=== PATIENT | male | born 1950 | race Caucasian/White ===

== ENCOUNTER 2022-05-14 17:42 | Observation (INO) ==
[2022-05-14 18:25] LABS: Basophils # (auto) 0.06 K/uL (0-0.2); Basophils % (auto) 0.3 %; Eosinophils # (auto) 0.08 K/uL (0-0.50); Eosinophils % (auto) 0.4 %; Hematocrit (blood only) 47.6 % (40.1-51.0); Hemoglobin 16.1 g/dl (14.0-18.0); Immature Granulocytes % (auto) 0.5 %; Lymphocytes # (auto) 3.88 K/uL (1.2-3.4); Lymphocytes % (auto) 20.7 %; Mean Corpuscular Hemoglobin 28.9 pg (25.0-34.0); Mean Corpuscular Hgb Conc 33.8 g/dL (32.0-36.0); Mean Corpuscular Volume 85.3 fL (80.0-100.0); Mean Platelet Volume 10.5 fL (9.4-12.4); Monocytes # (auto) 1.49 K/uL (0.24-0.82); Monocytes % (auto) 7.9 %; Neutrophils # (auto) 13.15 K/uL (1.4-6.5); Neutrophils % (auto) 70.2 %; Platelet Count 263 K/uL (130-400); RDW Coefficient of Variation 13.4 % (11.5-14.5); Red Blood Count 5.58 M/uL (4.63-6.08); White Blood Count 18.76 K/ul (4.8-10.8)
[2022-05-14 18:42] LABS: Alanine Aminotransferase 23 U/L (7-52); Alkaline Phosphatase 118 U/L (34-104); Anion Gap 7 (3-11); Aspartate Aminotransferase 16 U/L (13-39); BUN Creatinine Ratio 15.6 (10-20); Blood Urea Nitrogen 12 mg/dl (6-23); Calcium 9.5 mg/dl (8.5-10.1); Carbon Dioxide 25 mmol/L (21-32); Chloride 98 mmol/L (98-107); Est GFR (African American) 107.3 ml/min; Est GFR (Non-African American) 92.6 ml/min; Globulin 4.1 gm/dl (2.5-4.0); Glucose 138 mg/dl (70-99(Fasting)); Lipase 4 U/L (11-82); Potassium 4.1 mmol/L (3.5-5.1); Sodium 130 mmol/L (136-145); Total Protein 8.1 gm/dl (6.0-8.3)
[2022-05-14] MEDS ORDERED: MoRPHine SULFATE 4 MG/ML 1 ML CARP\\VIAL IV STA (19:11)
[2022-05-14] MEDS ORDERED: ACETAMINOPHEN 1,000 MG/100 ML VIAL IV STA (19:11)
[2022-05-14] MEDS ORDERED: ONDANSETRON INJ 2 MG/ML 2 ML VIAL IV STA (19:11)
[2022-05-14] MEDS ORDERED: SODIUM CHLORIDE 0.9% 1000ML 1,000 ML IV ONE (19:11)
[2022-05-14] MEDS ORDERED: OPTIRAY 300 100mL IV ONE (19:20)
--- NOTE | 2022-05-14 20:08 | Emergency Department Note ---
Impression & Plan Acute appendicitis, Acute right lower quadrant pain, Nausea ED Provider Note NAME: ELÍAS WAGGONER Jr AGE: 71 SEX: M ARRIVES VIA: Walk-In INFORMANT: Patient ED PROVIDER(S): Smith Zhang MD CHIEF COMPLAINT: Abdominal pain PLAN: Disposition: Admit MEDICAL DECISION MAKING: The patient is a pleasant 71-year-old gentleman with a past medical history of hypertension, hyperlipidemia, hypothyroidism, history of remote splenectomy who presents to the emergency department accompanied by his for evaluation of acute onset nausea with right-sided abdominal pain and decreased appetite since this morning. He denies any fevers, cough, congestion, chest pain or shortness of breath. He denies any urinary symptoms. On arrival the patient is uncomfortable no acute distress, afebrile with stable vital signs. He appears clinically dry. He has moderate right lower quadrant point tenderness over McBurney's point. There is no guarding or rebound. WBC 18.7K with neutrophil predominance and left shift. H/H and platelets within normal limits. Chemistry without metabolic acidosis. Electrolytes and LFTs unremarkable. COVID-19 RNA, SUSHMA test was negative. CT of the abdomen pelvis was performed and demonstrates evidence of acute appendicitis with dilated tubular blind-ending structure in the right lower quadrant compatible with inflamed appendix measuring 1.4 cm transversely with thickened fierro and mucosal hyperemia and intraluminal hyperdense material. Note is made of trace periappendiceal inflammation. Ceftriaxone ordered. Case was discussed with Chino Wiggins, general surgery PAC with Dr. Monaco, general surgery on-call who admit the patient for further management. Triage Nursing notes reviewed and agree them. Prior medical records reviewed Vital Signs: reviewed and remarkable for no significant abnormalities Differential diagnosis: Appendicitis, testicular torsion, infections, diverticulitis, UTI, obstruction, mesenteric ischemia, aortic pathology, inflammatory bowel disease, renal colic, PUD, pancreatitis, biliary pathology, hernia, volvulus, constipation, as well as other pathologies. ER treatment provided: See below. Diagnostics interpreted by me: ECG: Normal sinus rhythm, 78 bpm, no ectopy, no overt ST ovation or depression, QTC 446, QRS 82. Cardiac Monitoring: An order for continuous cardiac monitoring was placed and demonstrated Normal sinus rhythm, 78 bpm, no ectopy. Laboratory studies: See below Imaging studies: See below Consultation(s): Chino Wiggins general surgery PAC with Dr. Monaco, general surgery on-call HPI: The patient is a pleasant 71-year-old gentleman with a past medical history of hypertension, hyperlipidemia, hypothyroidism, history of remote splenectomy who presents to the emergency department accompanied by his for evaluation of acute onset nausea with right-sided abdominal pain and decreased appetite since this morning. He denies any fevers, cough, congestion, chest pain or shortness of breath. He denies any urinary symptoms. ROS: See above HPI for pertinent positives & negatives. A total of 10 systems reviewed and were otherwise negative. VITALS:See Below PHYSICAL EXAMINATION: GENERAL: Awake, alert, uncomfortable-appearing, in no distress HENT: Normocephalic, atraumatic. Oropharynx with dry mucous membranes and otherwise unremarkable. EYES: Normal conjunctiva. Sclera non-icteric. NECK: Supple. No nuchal rigidity. FROM. No JVD. RESPIRATORY: Clear to auscultation. CARDIAC: Regular rate, normal rhythm. Extremities warm and well perfused. Pulses equal. ABDOMEN: Soft, non-distended. Moderate right lower quadrant point tenderness over McBurney's point. There is no guarding or rebound. RECTAL: Deferred. MUSCULOSKELETAL: Chest examination reveals no tenderness. The back is symmetrical on inspection without obvious abnormality. There is no CVA tenderness to palpation. No joint edema. LOWER EXTREMITIES: Calves are equal size bilaterally and non-tender. No edema. No discoloration. NEURO: Normal sensorium. No sensory or motor deficits noted. SKIN: No rash or jaundice noted. Smith Zhang MD Past Med/Surg History Medical History BPH (benign prostatic hyperplasia) Hyperlipidemia Hypertension Hyponatremia Hypothyroidism Osteoarthritis Palpitations JUST ON OCCASION > DR. CADE > JULIAN DUVAL Surgical History History of cardiac cath NOVEMBER 2018 > JUST PREVENTATIVE PURPOSES > NO STENTS > PATITO DALY History of carpal tunnel release RIGHT History of colonoscopy History of splenectomy YRS AGO History of tonsillectomy Family History Father Throat cancer Social History Smoking Status: Former smoker Second Hand Exposure: Yes; Hx Alcohol Use: Yes Alcohol type: beer Hx Substance Use: No Preferred Language: Greek Communication Ability: Effective Turkish Line Attendant Required: No Beliefs That Will Affect Care: None Current Living Situation: Spouse Feels Safe at Home: Yes Assistive Devices: Glasses Allergies Allergies Allergy/AdvReac Type Severity Reaction Status Date / Time Penicillins Allergy Unknown Rash Verified 05/14/22 21:08 Home Meds Home Medications Medication Instructions Recorded Confirmed coenzyme Q10 100 mg capsule (Co 100 mg PO 1200 09/08/19 05/14/22 Q-10) folic acid 400 mcg tablet 400 mcg PO 1200 09/08/19 05/14/22 levothyroxine 175 mcg tablet 175 mcg PO DAILYBB 09/08/19 05/14/22 (Synthroid) aspirin 81 mg tablet,delayed 81 mg PO DAILY 05/14/22 05/14/22 release atorvastatin 40 mg tablet 40 mg PO DAILY 05/14/22 05/14/22 meloxicam 15 mg tablet 15 mg PO .DAILY AT NOON 05/14/22 05/14/22 terbinafine HCl 250 mg tablet 250 mg PO DAILY 05/14/22 05/14/22 valsartan 40 mg tablet 40 mg PO HS 05/14/22 05/14/22 verapamil 120 mg tablet,extended 120 mg PO QAM 05/14/22 05/14/22 release Results & Data (ED) Vital Signs Vital Signs - 24 hr 05/14/22 17:50 05/14/22 19:41 05/14/22 21:58 Temperature 37.4 C Temperature Source Temporal Artery Scan Pulse Rate 68 77 Pulse Rate [Apical] 84 Pulse Rhythm [Apical] Regular Respiratory Rate 18 16 16 Blood Pressure 178/91 H 138/85 Blood Pressure [Right Arm] Blood Pressure Mean 120 Blood Pressure Mean [Right Arm] Blood Pressure Position Sitting Pulse Oximetry 97 96 95 Oxygen Delivery Method Room Air Room Air Room Air Oxygen Flow Rate Sepsis Recent Fever Within 48 Hours No Sepsis New/Unexplained Change in Mental Status No Sepsis Action Taken by Nursing No Action Required 05/14/22 23:15 05/14/22 23:25 05/14/22 23:35 Temperature 37.2 C 37.2 C 37.2 C Temperature Source Oral Oral Oral Pulse Rate Pulse Rate [Apical] 78 79 71 Pulse Rhythm [Apical] Respiratory Rate 18 18 18 Blood Pressure Blood Pressure [Right Arm] 136/66 137/77 149/79 H Blood Pressure Mean Blood Pressure Mean [Right Arm] 89 97 102 Blood Pressure Position Pulse Oximetry 100 94 93 Oxygen Delivery Method Nasal Cannula Nasal Cannula Room Air Oxygen Flow Rate 5 3 Sepsis Recent Fever Within 48 Hours Sepsis New/Unexplained Change in Mental Status Sepsis Action Taken by Nursing 05/14/22 23:45 Temperature 37.2 C Temperature Source Oral Pulse Rate Pulse Rate [Apical] 82 Pulse Rhythm [Apical] Respiratory Rate 18 Blood Pressure Blood Pressure [Right Arm] 130/74 Blood Pressure Mean Blood Pressure Mean [Right Arm] 92 Blood Pressure Position Pulse Oximetry 92 Oxygen Delivery Method Room Air Oxygen Flow Rate Sepsis Recent Fever Within 48 Hours Sepsis New/Unexplained Change in Mental Status Sepsis Action Taken by Nursing Laboratory Data Attestation: I reviewed the patient's lab results. Result diagrams: 05/14/22 18:10 05/14/22 18:10 Lab Results 05/14/22 05/14/22 05/14/22 Range/Units 18:10 18:10 19:37 WBC 18.76 H (4.8-10.8) K/ul RBC 5.58 (4.63-6.08) M/uL Hgb 16.1 (14.0-18.0) g/dl Hct 47.6 (40.1-51.0) % MCV 85.3 (80.0-100.0) fL MCH 28.9 (25.0-34.0) pg MCHC 33.8 (32.0-36.0) g/dL RDW Std Deviation 42.0 (36.4-46.3) fL RDW Coeff of Zoraida 13.4 (11.5-14.5) % Plt Count 263 (130-400) K/uL MPV 10.5 (9.4-12.4) fL Immature Gran % (Auto) 0.5 % Neut % (Auto) 70.2 % Lymph % (Auto) 20.7 % [place] % (Auto) 7.9 % Eos % (Auto) 0.4 % Baso % (Auto) 0.3 % Neut # (Auto) 13.15 H (1.4-6.5) K/uL Lymph # (Auto) 3.88 H (1.2-3.4) K/uL [place] # (Auto) 1.49 H (0.24-0.82) K/uL Eos # (Auto) 0.08 (0-0.50) K/uL Baso # (Auto) 0.06 (0-0.2) K/uL Immature Gran # (Auto) 0.10 H (0.00-0.02) K/uL Sodium 130 L (136-145) mmol/L Potassium 4.1 (3.5-5.1) mmol/L Chloride 98 (98-107) mmol/L Carbon Dioxide 25 (21-32) mmol/L Anion Gap 7 (3-11) BUN 12 (6-23) mg/dl Creatinine 0.77 (0.6-1.4) mg/dl Est Cr Clr Drug Dosing Not Reportable Est GFR ( Amer) 107.3 ml/min Est GFR (Non-Af Amer) 92.6 ml/min BUN/Creatinine Ratio 15.6 (10-20) Glucose 138 H (70-99(Fasting)) mg/dl Calcium 9.5 (8.5-10.1) mg/dl Total Bilirubin 1.0 (0.2-1.0) mg/dl AST 16 (13-39) U/L ALT 23 (7-52) U/L Alkaline Phosphatase 118 H (34-104) U/L Total Protein 8.1 (6.0-8.3) gm/dl Albumin 4.0 (3.4-5.0) gm/dl Globulin 4.1 H (2.5-4.0) gm/dl Albumin/Globulin Ratio 1.0 (0.9-2) Lipase 4 L (11-82) U/L SARS-CoV-2, RNA, NAAT NEGATIVE (NEGATIVE) Administered Medications Sodium Chloride (Nss 1000ml) 1,000 mls @ 125 mls/hr IV .Q8H [facility] Stop: 06/13/22 20:44 Last Admin: 05/14/22 21:01 Dose: 125 mls/hr Documented By: KV Discontinued Medications Bupivacaine HCl (Bupivacaine 0.5 % 5 Mg/1 Ml Mpf 30ml Vial) Confirm Administered Dose 30 ml .ROUTE .STK-MED ONE Stop: 05/14/22 21:14 Last Admin: 05/14/22 22:59 Dose: 12 ml Documented By: MDD Epinephrine HCl (Epinephrine Inj 1 Mg/Ml Amp) Confirm Administered Dose 1 mg .ROUTE .STK-MED ONE Stop: 05/14/22 21:14 Last Admin: 05/14/22 22:59 Dose: 1 mg Documented By: MDD Sodium Chloride (Nss 1000ml) 1,000 mls @ 999 mls/hr IV .Q1H1M ONE Stop: 05/14/22 20:11 Last Admin: 05/14/22 19:33 Dose: 999 mls/hr Documented By: KV Acetaminophen (Ofirmev) 1,000 mg in 100 mls @ 400 mls/hr IV NOW STA Stop: 05/14/22 19:25 Last Admin: 05/14/22 19:34 Dose: 400 mls/hr Documented By: KV Ceftriaxone Sodium (Rocephin) 2,000 mg in 70 mls @ 140 mls/hr IV NOW STA Stop: 05/14/22 20:48 Last Admin: 05/14/22 21:01 Dose: 140 mls/hr Documented By: KV Ioversol (Optiray 300 100ml) 88 ml IV ONCE ONE Stop: 05/14/22 19:21 Last Admin: 05/14/22 19:22 Dose: 88 ml Documented By: JMP Morphine Sulfate (Morphine Sulfate 4 Mg/Ml 1 Ml Carp\Vial) 4 mg IV NOW STA Stop: 05/14/22 19:12 Last Admin: 05/14/22 19:34 Dose: 4 mg Documented By: KV Ondansetron HCl (Ondansetron Inj 2 Mg/Ml 2 Ml Vial) 4 mg IV NOW STA Stop: 05/14/22 19:12 Last Admin: 05/14/22 19:34 Dose: 4 mg Documented By: KV Imaging Data Radiologist's Impression: Abdomen/Pelvis CT 05/14/22 17:[address] WITH IV CONTRAST CT DOSE: 1244.52 mGy.cm HISTORY: Acute right lower quadrant abdominal pain RLQ abd pain TECHNIQUE: Multiaxial CT images of the abdomen and pelvis were performed following the IV administration of 88 cc of Optiray, A dose lowering technique was utilized adhering to the principles of ALARA. COMPARISON STUDY: None. FINDINGS: Coronary artery calcifications. Mild cardiomegaly. Mild subsegmental bibasilar atelectasis. No pneumatosis or pneumoperitoneum. Absent spleen. Unremarkable pancreas, gallbladder and adrenal glands. Hepatomegaly with hepatic steatosis. Increased attenuation of the inferior right hepatic lobe measuring up to approximately 8.6 cm with marginal nodularity may represent fatty sparing. An exophytic hepatic lesion is considered less likely. Patency of the hepatic and portal veins. Symmetric enhancement of the kidneys. 3.4 cm cyst within the inferior pole left kidney. There are 2 calcifications in the inferior pole right kidney measuring up to 4 mm suggestive of nonobstructing renal calculi. No ureteral calculi or hydronephrosis. Partial distention of the urinary bladder. The prostate is upper limits of normal in size. Atherosclerosis of the aorta without aneurysm. No lymphadenopathy. No bowel obstruction. Mild fecal retention of the right hemicolon. There is a dilated tubular blind-ending structure within the abdominal right lower quadrant compatible with an inflamed appendix measuring 1.4 cm transversely demonstrating thickened fierro with mucosal hyperemia and intraluminal hyperdense material. Periappendiceal inflammation with trace free fluid no drainable fluid collection. Wall thickening at the base of the cecum is likely reactive. Unremarkable soft tissues. No acute fracture. Avascular necrosis of the femoral heads without articular collapse. IMPRESSION: 1. Findings compatible with acute appendicitis with intraluminal hyperdense debris suggestive of probable appendicolith. 2. No pneumoperitoneum or abscess. 3. No bowel obstruction. 4. Hepatomegaly with hepatic steatosis. 5. Avascular necrosis of the femoral heads. 6. Nonobstructing right renal calculi. ACT 112: Negative or not required by law. The above report was generated using voice recognition software. It may contain grammatical, syntax or spelling errors. Electronically signed by: Glynn Lewis M.D. 05/14/2022 8:14 PM Discharge Plan Visit Data Chief Complaint: Abdominal Pain Stated Complaint: REF BY , ABDOMINAL PAIN ED Provider: Smith Zhang Discharge Problem: Acute appendicitis, Acute right lower quadrant pain, Nausea Patient Disposition: Admitted As Inpatient Discharge Instructions Interventions: ED Discharge Assessment Last Done: 05/14/22 21:58
--- NOTE | 2022-05-14 20:16 | CT Scan Report ---
ABDOMEN AND PELVIS CT WITH IV CONTRAST CT DOSE: 1244.52 mGy.cm HISTORY: Acute right lower quadrant abdominal pain RLQ abd pain TECHNIQUE: Multiaxial CT images of the abdomen and pelvis were performed following the IV administrat ion of 88 cc of Optiray, A dose lowering technique was utilized adhering to the principles of ALARA. COMPARISON STUDY: None. FINDINGS: Coronary artery calcifications. Mild cardiomegaly. Mild subsegmental bibasilar atelectasis. No pneuma tosis or pneumoperitoneum. Absent spleen. Unremarkable pancreas, gallbladder and adrenal glands. Hepa tomegaly with hepatic steatosis. Increased attenuation of the inferior right hepatic lobe measuring u p to approximately 8.6 cm with marginal nodularity may represent fatty sparing. An exophytic hepatic lesion is considered less likely. Patency of the hepatic and portal veins. Symmetric enhancement of the kidneys. 3.4 cm cyst within the inferior pole left kidney. There are 2 c alcifications in the inferior pole right kidney measuring up to 4 mm suggestive of nonobstructing omid al calculi. No ureteral calculi or hydronephrosis. Partial distention of the urinary bladder. The pro state is upper limits of normal in size. Atherosclerosis of the aorta without aneurysm. No lymphadeno zain. No bowel obstruction. Mild fecal retention of the right hemicolon. There is a dilated tubular blind-e nding structure within the abdominal right lower quadrant compatible with an inflamed appendix measur ing 1.4 cm transversely demonstrating thickened fierro with mucosal hyperemia and intraluminal hyperde nse material. Periappendiceal inflammation with trace free fluid no drainable fluid collection. Wall thickening at the base of the cecum is likely reactive. Unremarkable soft tissues. No acute fracture. Avascular necrosis of the femoral heads without articular collapse. IMPRESSION: 1. Findings compatible with acute appendicitis with intraluminal hyperdense debris suggestive of prob able appendicolith. 2. No pneumoperitoneum or abscess. 3. No bowel obstruction. 4. Hepatomegaly with hepatic steatosis. 5. Avascular necrosis of the femoral heads. 6. Nonobstructing right renal calculi. ACT 112: Negative or not required by law. The above report was generated using voice recognition software. It may contain grammatical, syntax o r spelling errors. Electronically signed by: Glynn Lewis M.D. 05/14/2022 8:14 PM
[2022-05-14] MEDS ORDERED: cefTRIAXone SODIUM 2,000 MG/70 ML BAG IV STA (20:19)
[2022-05-14] MEDS ORDERED: SODIUM CHLORIDE 0.9% 1000ML 1,000 ML IV SCH (20:45)
--- NOTE | 2022-05-14 20:54 | History & Physical Report ---
Date of Service May 14, 2022 Assessment & Plan (1) Acute appendicitis: Plan: Due to the patient's clinical presentation he will be admitted to the hospital proceeding as follows: Patient be kept n.p.o. We will administer antibiotics. The treating emergency room physician has given Rocephin and we will continue this medication Analgesics we provided Antiemetics be provided We will hydrate with IV fluids We are planning on performing appendectomy this evening with Dr. Monaco. I have consented the patient for a laparoscopic, possible open appendectomy. Additional recommendations be forthcoming based on operative findings and his postoperative course We will use SCDs for DVT prevention, no chemical means due to planned surgery He will be a level 1 full code as above. clinically c/w appendicitis. discussed options risks ( bleeding/infe ction/injury to another structure/dvt/pe/mi/cva etc....). questions answered. will proceed with hannah tracy. pt agreeable. History of Present Illness Chief Complaint: Acute appendicitis Primary Care Provider: Ever Agrawal DO This is a 71-year-old male who presented to [facility] emergency department secondary to abdominal pain. He said that the pain began earlier this morning and was located in the periumbilical area. He notes that the pain subsequently shifted to the right lower quadrant. He has associated nausea without vomiting. Patient says that his only oral intake today was water at approximately 12:00 PM. He did not eat any solid foods today. With his pain he denies any palliative factors other than medicines administered in the emergency department. He does note that the pain is worse with certain movements. He denies any fevers, shakes, or chills. Patient has had prior abdominal surgeries in the form of a splenectomy which she had he believes in 1971 and was performed due to splenomegaly. He could not provide any further details regarding this. 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 He does admit to intermittent chest pain at times but feels that this is stable. He does follow with his transcript clerk Dr. Aren Grier and has a stress test approximately 1 month ago. The report from this was reviewed and the patient was noted to have a normal stress test without any signs of ischemia. Today in the emergency department he had labs and imaging which I independently reviewed. Labs include a CBC were white blood cell count was 18.7. Hemoglobin, hematocrit, and platelet count were normal. Chemistry profile showed a sodium is 130. Potassium, BUN, and creatinine were normal. A COVID test was performed and was negative. An EKG was performed that showed normal sinus rhythm without any changes indicative of acute ischemia.A CT scan of the abdomen and pelvis showed findings concerning for acute appendicitis with intraluminal appendiceal debris concerning for an appendicolith. There is no evidence of perforation. At the time of my interview the patient was resting comfortably in bed and he was in no distress Allergies Allergy/AdvReac Type Severity Reaction Status Date / Time Penicillins Allergy Unknown Rash Verified 05/14/22 21:08 Home Medications Medication Instructions Recorded Confirmed Type coenzyme Q10 100 mg capsule (Co 100 mg PO 1200 09/08/19 05/14/22 History Q-10) folic acid 400 mcg tablet 400 mcg PO 1200 09/08/19 05/14/22 History levothyroxine 175 mcg tablet 175 mcg PO DAILYBB 09/08/19 05/14/22 History (Synthroid) aspirin 81 mg tablet,delayed 81 mg PO DAILY 05/14/22 05/14/22 History release atorvastatin 40 mg tablet 40 mg PO DAILY 05/14/22 05/14/22 History meloxicam 15 mg tablet 15 mg PO .DAILY AT NOON 05/14/22 05/14/22 History terbinafine HCl 250 mg tablet 250 mg PO DAILY 05/14/22 05/14/22 History valsartan 40 mg tablet 40 mg PO HS 05/14/22 05/14/22 History verapamil 120 mg tablet,extended 120 mg PO QAM 05/14/22 05/14/22 History release Past Med/Surg History Medical History BPH (benign prostatic hyperplasia) Hyperlipidemia Hypertension Hyponatremia Hypothyroidism Osteoarthritis Palpitations JUST ON OCCASION > DR. GRIER > JULIAN DUVAL Surgical History History of cardiac cath NOVEMBER 2018 > JUST PREVENTATIVE PURPOSES > NO STENTS > PATITO DALY History of carpal tunnel release RIGHT History of colonoscopy History of splenectomy YRS AGO History of tonsillectomy Family History Father Throat cancer Social History Smoking Status: Former smoker Second Hand Exposure: Yes; Hx Alcohol Use: Yes Alcohol type: beer Hx Substance Use: No Preferred Language: German Communication Ability: Effective Seal Mixing Operator Required: No Beliefs That Will Affect Care: None Current Living Situation: Spouse Feels Safe at Home: Yes Assistive Devices: Glasses Review of Systems Constitutional: no fever and no chills Eyes: no eye pain Ear, Nose, Mouth, Throat: no ear pain Respiratory: no cough and no dyspnea Cardiovascular: as per Subjective / HPI Gastrointestinal: as per Subjective / HPI Genitourinary: no dysuria Musculoskeletal: no back pain Integumentary: no rash Neurologic: no generalized weakness Physical Exam Constitutional: WD/WN, vitals as above Eyes: no conjunctival abnormality ENMT: Ears: no hearing impairment and no external ear abnormality Mouth: no oropharynx abnormality Neck: trachea midline Respiratory: normal respiratory effort; no respiratory distress and no labored breathing Cardiovascular: Rate/Rhythm: regular rate and regular rhythm Gastrointestinal (Abdomen): Abdomen is rotund but soft. There is pain noted with palpation in the right lower quadrant over McBurney's point. There is no rebound tenderness or guarding Musculoskeletal: No calf tenderness Skin: no rashes Neurologic: moves all extremities Psychiatric: A+Ox3, euthymic affect Results & Data Results & Data ([facility]) Vital Signs (Past 12 Hours) Vital Signs Temp Pulse Pulse Resp BP Pulse Ox O2 Del Method 05/14/22 19:41 84 16 96 Room Air 05/14/22 17:50 37.4 C 68 18 178/91 H 97 Room Air PG Care Time/CCT Total # of Minutes Spent Total Time Spent with Patient: Total time spent is greater than 50% in coordination of care (as documented) at patient's floor/unit and/or counseling patient: Coding Level of Care Code INT OBSERVATION CARE 72M LVL 3 Diagnoses Acute appendicitis K35.80
[2022-05-14] MEDS ORDERED: EPINEPHrine INJ 1 MG/ML AMP ONE (21:13)
[2022-05-14] MEDS ORDERED: BUPIVACAINE 0.5 % 5 MG/1 ML MPF 30ML VIAL ONE (21:13)
[2022-05-14] MEDS ORDERED: ACETAMINOPHEN 1,000 MG/100 ML VIAL IV PRN (21:17)
[2022-05-14] MEDS ORDERED: MoRPHine SULFATE 4 MG/ML 1 ML CARP\\VIAL IV PRN (21:17)
[2022-05-14] MEDS ORDERED: ONDANSETRON INJ 2 MG/ML 2 ML VIAL IV PRN ×2 (21:17→21:38)
[2022-05-14] MEDS ORDERED: ePHEDrine sulfate 50 MG/ML AMP IV PRN (21:38)
[2022-05-14] MEDS ORDERED: HYDROmorphone INJ 1 MG/ML SYRINGE IV PRN (21:38)
[2022-05-14] MEDS ORDERED: LABETALOL HCL IV 5 MG/ML 20ML IV PRN (21:38)
[2022-05-14] MEDS ORDERED: MEPERIDINE HCL 25 MG/ML CARP/VIAL IV PRN (21:38)
[2022-05-14] MEDS ORDERED: ATROPINE SULFATE 0.1 MG/ML 10ML SYR IV PRN (21:38)
[2022-05-14] MEDS ORDERED: PHENYLEPHRINE 100MCG/ML 5ML SYR IV PRN (21:38)
[2022-05-14] MEDS ORDERED: fentaNYL citrate 100 MCG/2 ML VIAL IV PRN (21:38)
--- NOTE | 2022-05-14 21:39 | Anesthesiology Consultation ---
Date of Service May 14, 2022 Assessment & Plan (1) Encounter for pre-operative examination: Chart Review Chart Review: Acceptable Risk for Surgery (emergency surgery) and Patient NOT seen in Pre Admission Testing Consults Requested none History Surgery Operation Date: 05/14/22 22:00 Proposed Procedures p Laparoscopic Appendectomy - Simone Monaco DO Height/Weight Weight: 115.6 kg Allergies Allergy/AdvReac Type Severity Reaction Status Date / Time Penicillins Allergy Unknown Rash Verified 05/14/22 21:08 Medications Home Medications Medication Instructions Recorded Confirmed Last Taken coenzyme Q10 100 mg capsule (Co 100 mg PO 1200 09/08/19 05/14/22 05/14/22 Q-10) folic acid 400 mcg tablet 400 mcg PO 1200 09/08/19 05/14/22 05/14/22 levothyroxine 175 mcg tablet 175 mcg PO DAILYBB 09/08/19 05/14/22 05/14/22 (Synthroid) aspirin 81 mg tablet,delayed 81 mg PO DAILY 05/14/22 05/14/22 05/14/22 release atorvastatin 40 mg tablet 40 mg PO DAILY 05/14/22 05/14/22 05/13/22 meloxicam 15 mg tablet 15 mg PO .DAILY AT NOON 05/14/22 05/14/22 05/14/22 terbinafine HCl 250 mg tablet 250 mg PO DAILY 05/14/22 05/14/22 05/14/22 valsartan 40 mg tablet 40 mg PO HS 05/14/22 05/14/22 05/13/22 verapamil 120 mg tablet,extended 120 mg PO QAM 05/14/22 05/14/22 05/14/22 release Active Medications Generic Name Dose Route Start Last Admin Trade Name Freq PRN Reason Stop Dose Admin Sodium Chloride 1,000 mls @ 125 mls/hr 05/14/22 20:45 05/14/22 21:01 Nss 1000ml IV 06/13/22 20:44 125 mls/hr .Q8H RAJ Administration Past Medical History Medical History BPH (benign prostatic hyperplasia) Hyperlipidemia Hypertension Hyponatremia Hypothyroidism Osteoarthritis Palpitations JUST ON OCCASION > DR. CADE > [facility] Past Family History Family History Father Throat cancer Past Surgical History Surgical History History of cardiac cath NOVEMBER 2018 > JUST PREVENTATIVE PURPOSES > NO STENTS > [place] History of carpal tunnel release RIGHT History of colonoscopy History of splenectomy YRS AGO History of tonsillectomy Social History Smoking Status: Former smoker Hx Alcohol Use: Yes Alcohol type: beer alcohol intake frequency: 0-2 drinks per day Hx Substance Use: No substance use type: does not use Physical Exam Vital Signs Last Vital Signs Temp 37.4 C 05/14/22 17:50 Pulse 84 05/14/22 19:41 Resp 16 05/14/22 19:41 BP 178/91 H 05/14/22 17:50 Pulse Ox 96 05/14/22 19:41 O2 Del Method 05/14/22 19:41 Testing Laboratory Results 05/14/22 18:10 05/14/22 18:10 Electrocardiogram Date: 05/14/22 NSR with sinus arrhythmia, rate 78 Other Testing ABDOMEN AND PELVIS CT WITH IV CONTRAST CT DOSE: 1244.52 mGy.cm HISTORY: Acute right lower quadrant abdominal pain RLQ abd pain TECHNIQUE: Multiaxial CT images of the abdomen and pelvis were performed followi ng the IV administration of 88 cc of Optiray, A dose lowering technique was utilized adhering to the principles of ALARA. COMPARISON STUDY: None. FINDINGS: Coronary artery calcifications. Mild cardiomegaly. Mild subsegmental bibasilar atelectasis. No pneumatosis or pneumoperitoneum. Absent spleen. Unremarkable pancreas, gallbladder and adrenal glands. Hepatomegaly with hepatic steatosis. Increased attenuation of the inferior right hepatic lobe measuring up to approximately 8.6 cm with marginal nodularity may represent fatty sparing. An exophytic hepatic lesion is considered less likely. Patency of the hepatic and portal veins. Symmetric enhancement of the kidneys. 3.4 cm cyst within the inferior pole left kidney. There are 2 calcifications in the inferior pole right kidney measuring u p to 4 mm suggestive of nonobstructing renal calculi. No ureteral calculi or hydronephrosis. Partial distention of the urinary bladder. The prostate is upper limits of normal in size. Atherosclerosis of the aorta without aneurysm. No lymphadenopathy. No bowel obstruction. Mild fecal retention of the right hemicolon. There is a dilated tubular blind-ending structure within the abdominal right lower quadrant compatible with an inflamed appendix measuring 1.4 cm transversely demonstrating thickened fierro with mucosal hyperemia and intraluminal hyperdense material. Periappendiceal inflammation with trace free fluid no drainable fluid collection. Wall thickening at the base of the cecum is likely reactive. Unremarkable soft tissues. No acute fracture. Avascular necrosis of the femoral heads without articular collapse. IMPRESSION: 1. Findings compatible with acute appendicitis with intraluminal hyperdense debris suggestive of probable appendicolith. 2. No pneumoperitoneum or abscess. 3. No bowel obstruction. 4. Hepatomegaly with hepatic steatosis. 5. Avascular necrosis of the femoral heads. 6. Nonobstructing right renal calculi. ACT 112: Negative or not required by law. The above report was generated using voice recognition software. It may contain grammatical, syntax or spelling errors. Electronically signed by: Glynn Lewis M.D. 05/14/2022 8:14 PM Dictated:05/14/222004
[2022-05-14] MEDS ORDERED: fentaNYL citrate 100 MCG/2 ML VIAL ONE (21:44)
[2022-05-14] MEDS ORDERED: GLYCOPYRROLATE 0.2 MG/ML VIAL ONE ×2 (21:48→22:38)
[2022-05-14] MEDS ORDERED: DEXAMETHASONE SOD INJ 4 MG/ML VIAL ONE (21:48)
[2022-05-14] MEDS ORDERED: ROCURONIUM BROMIDE 10 MG/ML 5 ML VIAL IV ONE (21:48)
[2022-05-14] MEDS ORDERED: PROPOFOL IV EMULSION 10 MG/ML 20 ML VIAL IV ONE (21:48)
[2022-05-14] MEDS ORDERED: ONDANSETRON INJ 2 MG/ML 2 ML VIAL ONE (21:48)
[2022-05-14] MEDS ORDERED: NEOSTIGMINE METHYLSULFATE 1 MG/ML 10ML VIAL ONE (21:48)
[2022-05-14] MEDS ORDERED: LIDOCAINE 2% MPF LOCAL 5 ML VIAL INFIL ONE (21:49)
[2022-05-14] MEDS ORDERED: PHENYLEPHRINE 100MCG/ML 5ML SYR ONE (22:30)
[2022-05-14] MEDS ORDERED: SUGAMMADEX SODIUM 200 MG/2 ML VIAL IV ONE (22:50)
--- NOTE | 2022-05-14 23:03 | Operative Report ---
PG Post Operative Report Pre & Post Diagnosis Operation Date: 05/14/22 22:00 Pre-Op Diagnosis: Acute appendicitis Post-Op Diagnosis: Acute appendicitis I identified the patient and participated in the time-out.: Yes Procedure Operation Date: 05/14/22 22:00 Actual Procedures p Laparoscopic Appendectomy - Simone Monaco DO Surgeon Simone Monaco DO [employer] Consultant iris Wiggins Estimated Blood Loss 5 Findings Consistent with Post-Op Diagnosis Specimens appendix Description of Procedure After informed consent was obtained the patient was taken to the operating room and placed in supine position. After successful intubation the left arm was tucked. I began by making a periumbilical incision with an 11 blade scalpel and carried this down through the soft tissue using electrocautery. The anterior rectus fascia was opened using electrocautery and 2 #0 Vicryl stay sutures were placed. The peritoneum was elevated using hemostats and incised under direct vision using a Metzenbaum scissor. A finger sweep was performed. A 12 mm Noonan trocar was placed and the abdomen was insufflated to 18 mmHg. A laparoscope was inserted and the abdomen was examined in 360. A suprapubic 5 mm port and a left lower quadrant 12 mm port were placed under direct vision. The patient was air planed to the left as well as placed in a slight Trendelenburg position. We began by looking in the right lower quadrant. We were able to readily identify the appendix and it was grossly inflamed. It had not perforated. There is a small amount of purulent fluid in the right lower quadrant and the pelvis. We immediately irrigated and suctioned this out. I was able to use primarily blunt dissection to pull the appendix away from the right lower quadrant sidewall. Next using a [place] dissector I was able to create a small window in the mesentery of the appendix near its base with the cecum. I was then able to use a MARI purple cartridge stapler to transect first the thickened mesentery followed by a 60 cm brown cartridge for the appendix itself at its base with the cecum. It was then placed into an Endo Catch bag and removed from the camera port site. We thoroughly irrigated the right lower quadrant as well as the pelvis. There was adequate hemostasis. I ran the small bowel backwards from the terminal ileum for about 6 feet all of which was normal. All the peritoneal surfaces were normal. Small/ large bowel, liver, stomach etc. all appeared grossly normal. We did a final irrigation and then removed all the trochars and desufflated the abdomen. The fascia of the camera port as well as the left lower quadrant were closed using 0 Vicryl in [id number] fashion. Wounds were all irrigated and closed using 4-0 Monocryl. Marcaine was injected around them for postoperative analgesia and skin glue used as a dressing. The patient was awakened extubated and transferred to recovery in stable condition. My physician's wardrobe assistant was present through the entire case. he assisted with prepping the patient and helped with exposure for port placement, helped run the camera and helped with fascial/wound closure at the end of the procedure as well as dressing placement. I attest to the content of the Intraoperative Record and any orders documented therein. Any exceptions are noted below. I attest to the content of the Intraoperative Record and any orders documented therein. Any exceptions are noted below.
--- NOTE | 2022-05-14 23:46 | Anesthesiology Progress Note ---
Date of Service May 14, 2022 Anesthesia Post Procedure Vital Signs Vital Signs: Temp Pulse Pulse Resp BP BP Pulse Ox 05/14/22 23:15 37.2 C 78 18 136/66 100 05/14/22 21:58 77 16 138/85 95 05/14/22 19:41 84 16 96 05/14/22 17:50 37.4 C 68 18 178/91 H 97 O2 Del Method O2 Flow Rate 05/14/22 23:15 Nasal Cannula 5 05/14/22 21:58 Room Air 05/14/22 19:41 Room Air 05/14/22 17:50 Room Air Pain Intensity Right Abdomen: Pain Intensity: 2 Transfer of Care Handoff Completed per policy Notes Mental Status: alert / awake / arousable Patient Amnestic to Procedure: Yes Nausea / Vomiting: adequately controlled Pain: adequately controlled Airway Patency, RR, SpO2: stable & adequate BP & HR: stable & adequate Hydration State: stable & adequate Anesthetic Complications: no major complications apparent and Pt Satisfied with anesthetic care
[2022-05-15] MEDS: LACTATED RINGER'S 1,000 ML IV SCH ×2 (02:14→11:58)
[2022-05-15] MEDS: cefOXitin 2,000 MG in DEXTROSE 5% 50 ML IV SCH ×2 (04:12→09:21)
[2022-05-15] MEDS ORDERED: LEVOTHYROXINE SODIUM 175 MCG TABLET PO SCH (06:30)
--- NOTE | 2022-05-15 07:02 | XRay Report ---
SINGLE VIEW CHEST CLINICAL HISTORY: Preoperative examination. Appendicitis. FINDINGS: An AP, portable, upright chest radiograph is obtained. No prior studies are available for c omparison at the time of dictation. The heart is enlarged noting atherosclerotic calcification of the thoracic aorta. The pulmonary vasculature is noncongested. Nonspecific interstitial thickening is li kurt chronic. There is bibasilar scarring/atelectasis. The lungs and pleural spaces are otherwise teetee ar. No pneumothorax is seen. The skeletal structures are osteopenic. The bony thorax is grossly intac t. IMPRESSION: Cardiomegaly with no active disease in the chest. ACT 112: Negative or not required by law. Electronically signed by: Lake Wetzel M.D. 05/15/2022 7:00 AM
[2022-05-15 07:35] LABS: Basophils # (auto) 0.03 K/uL (0-0.2); Basophils % (auto) 0.2 %; Hematocrit (blood only) 43.3 % (40.1-51.0); Hemoglobin 14.6 g/dl (14.0-18.0); Immature Granulocytes # (auto) 0.08 K/uL (0.00-0.02); Immature Granulocytes % (auto) 0.5 %; Lymphocytes # (auto) 2.02 K/uL (1.2-3.4); Lymphocytes % (auto) 12.8 %; Mean Corpuscular Hemoglobin 29.2 pg (25.0-34.0); Mean Corpuscular Hgb Conc 33.7 g/dL (32.0-36.0); Mean Corpuscular Volume 86.6 fL (80.0-100.0); Mean Platelet Volume 10.6 fL (9.4-12.4); Monocytes # (auto) 0.51 K/uL (0.24-0.82); Monocytes % (auto) 3.2 %; Neutrophils % (auto) 83.3 %; Platelet Count 239 K/uL (130-400); RDW Coefficient of Variation 13.9 % (11.5-14.5); RDW Standard Deviation 43.8 fL (36.4-46.3); White Blood Count 15.84 K/ul (4.8-10.8)
[2022-05-15 08:09] LABS: BUN Creatinine Ratio 15.2 (10-20); Calcium 8.6 mg/dl (8.5-10.1); Creatinine Clr Calc Pharmacy 143.1 ml/min; Est GFR (African American) 114.3 ml/min; Est GFR (Non-African American) 98.6 ml/min; Potassium 4.6 mmol/L (3.5-5.1)
[2022-05-15] MEDS ORDERED: ATORVASTATIN 40 MG TAB PO SCH (09:00)
[2022-05-15] MEDS ORDERED: VERAPAMIL HCL 120 MG TABCR PO SCH (09:00)
[2022-05-15] MEDS ORDERED: terbinafine HCL 250 MG TAB PO SCH (09:00)
[2022-05-15] MEDS ORDERED: ASPIRIN 81 MG ECTAB PO SCH (09:00)
--- NOTE | 2022-05-15 10:43 | Surgery Progress Note ---
Date of Service May 15, 2022 Assessment & Plan (1) Acute appendicitis: (2) History of laparoscopic appendectomy: Plan: doing as expected ok for d/c instructions given. f/u in 1 week. Admission and Anticipated Discharge Date Admission Date: May 14, 2022 Subjective pt seen. feeling much better. still some mild RLQ tenderness. connor diet. Physical Exam Physical Exam: alert. nad abd: soft. expected tenderness. Results & Data ([facility]) Vital Signs (Past 12 Hours) Vital Signs Temp Pulse Pulse Pulse Resp BP BP 05/15/22 07:30 37.4 C 77 20 146/76 H 05/15/22 02:00 37.0 C 91 H 18 157/87 H 05/14/22 23:45 37.2 C 82 18 130/74 05/14/22 23:45 37.2 C 82 18 130/74 05/14/22 23:35 37.2 C 71 18 149/79 H 05/14/22 23:25 37.2 C 79 18 137/77 05/14/22 23:15 37.2 C 78 18 136/66 Pulse Ox O2 Del Method O2 Flow Rate 05/15/22 07:30 96 Room Air 05/15/22 02:00 94 Room Air 05/14/22 23:45 92 Room Air 05/14/22 23:45 92 Room Air 05/14/22 23:35 93 Room Air 05/14/22 23:25 94 Nasal Cannula 3 05/14/22 23:15 100 Nasal Cannula 5 PG Care Time/CCT Total # of Minutes Spent Total Time Spent with Patient: Total time spent is greater than 50% in coordination of care (as documented) at patient's floor/unit and/or counseling patient: Coding Level of Care Code None Diagnoses Acute appendicitis K35.80 History of laparoscopic appendectomy Z90.49
--- NOTE | 2022-05-15 13:47 | Electrocardiogram Report ---
Test Reason : Blood Pressure : / mmHG Vent. Rate : 078 BPM Atrial Rate : 078 BPM P-R Int : 164 ms QRS Dur : 082 ms QT Int : 392 ms P-R-T Axes : 009 009 008 degrees QTc Int : 446 ms Normal sinus rhythm with sinus arrhythmia Normal ECG When compared with ECG of 30-SEP-2019 13:56, Premature atrial complexes are no longer Present Confirmed by Dionte Patrick ([id number]) on 05/15/2022 1:47:14 PM Referred By: Ever Agrawal Confirmed By:Dionte Patrick
[2022-05-15] MEDS ORDERED: VALSARTAN 80 MG TAB PO SCH (21:00)
--- NOTE | 2022-05-16 21:50 | Discharge Summary ---
Date of Service May 16, 2022 Admission HPI Per Admitting Provider This is a 71-year-old male who presented to [facility] emergency department secondary to abdominal pain. He said that the pain began earlier this morning and was located in the periumbilical area. He notes that the pain subsequently shifted to the right lower quadrant. He has associated nausea without vomiting. Patient says that his only oral intake today was water at approximately 12:00 PM. He did not eat any solid foods today. With his pain he denies any palliative factors other than medicines administered in the emergency department. He does note that the pain is worse with certain m ovements. He denies any fevers, shakes, or chills. Patient has had prior abdominal surgeries in the form of a splenectomy which she had he believes in 1971 and was performed due to splenomegaly. He could not provide any further details regarding this. 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 He does admit to intermittent chest pain at times but feels that this is stable. He does follow with his shochet Dr. Aren Grier and has a stress test approximately 1 month ago. The report from this was reviewed and the patient was noted to have a normal stress test without any signs of ischemia. Today in the emergency department he had labs and imaging which I independently reviewed. Labs include a CBC were white blood cell count was 18.7. Hemoglobin, hematocrit, and platelet count were normal. Chemistry profile showed a sodium is 130. Potassium, BUN, and creatinine were normal. A COVID test was performed and was negative. An EKG was performed that showed normal sinus rhythm without any changes indicative of acute ischemia.A CT scan of the abdomen and pelvis showed findings concerning for acute appendicitis with intraluminal appendiceal debris concerning for an appendicolith. There is no evidence of perforation. At the time of my interview the patient was resting comfortably in bed and he was in no distress Discharge Data Consultations 05/14/22 20:55 ED Decision to Admit Stat Procedures Performed Operation Date: 05/14/22 22:00 Actual Procedures p Laparoscopic Appendectomy - Simone Monaco DO Hospital Course (1) History of laparoscopic appendectomy: This is a 71-year-old male who presented to the emergency department on 05/14/2022 secondary to abdominal pain. He underwent a CT scan of the abdomen pelvis that showed concern for acute appendicitis. There is also concern the patient had a fecalith within his appendix. Because this patient was taken the operating room on the date of admission and Dr. Monaco performed a laparoscopic appendectomy. Patient was kept in the hospital overnight and the following morning his diet was advanced as tolerated. He was thus deemed stable for discharge home on postop day #1 after an uneventful hospital course. He was instructed on appropriate wound care, diet, and activity. He was instructed to call the office in 1 to 2 weeks for follow-up appointment. Coding Level of Care Code None Diagnoses History of laparoscopic appendectomy Z90.49
== END 2022-05-15 13:24 | disposition home or self-care (01) | DRG 343 ==
LOC: ED 17:42 → 3W 21:58 → OR 21:58 → 3W 23:10 → INTOOBSV 23:10

== ENCOUNTER 2023-05-30 06:43 | Observation (INO) ==
--- NOTE | 2023-02-05 13:41 | PAT Medication Instructions ---
Medication Instructions Date of Service February 05, 2023 Home Medications Medication Instructions Recorded Abby Blackmon #1 ea 02/03/23 Medication List: coenzyme Q10 100 mg capsule (Co Q-10) 100 mg PO QDL folic acid 400 mcg tablet 400 mcg PO QDL aspirin 81 mg tablet,delayed release 81 mg PO QDL verapamil 120 mg tablet,extended release 120 mg PO QPM cholecalciferol (vitamin D3) 50 mcg (2,000 unit) capsule (Vitamin D3) 50 mcg PO QAM levothyroxine 150 mcg tablet (Synthroid) 150 mcg PO QAM losartan 50 mg tablet 50 mg PO QPM prazosin 1 mg capsule 1 mg PO HS PRN Sleep rosuvastatin 10 mg tablet 10 mg PO QAM zinc 50 mg tablet 50 mg PO QDL ASK your prescriber and surgeon aspirin 81 mg tablet,delayed release 81 mg PO QDL STOP taking 2 weeks before surgery coenzyme Q10 100 mg capsule (Co Q-10) 100 mg PO QDL DO NOT take the morning of surgery folic acid 400 mcg tablet 400 mcg PO QDL zinc 50 mg tablet 50 mg PO QDL cholecalciferol (vitamin D3) 50 mcg (2,000 unit) capsule (Vitamin D3) 50 mcg PO QAM Take morning of surgery With a small sip of water, OTHERWISE NOTHING TO EAT OR DRINK AFTER MIDNIGHT: levothyroxine 150 mcg tablet (Synthroid) 150 mcg PO QAM rosuvastatin 10 mg tablet 10 mg PO QAM Take evening before surgery verapamil 120 mg tablet,extended release 120 mg PO QPM losartan 50 mg tablet 50 mg PO QPM prazosin 1 mg capsule 1 mg PO HS PRN Sleep (if needed) Other Notes If you have any questions please call us at [phone] or [phone] or [phone] or [phone]
--- NOTE | 2023-05-01 13:01 | Anesthesiology Consultation ---
Date of Service May 01, 2023 Assessment & Plan (1) Encounter for pre-operative examination: - Check BSG AM DOS - COVID screening: Per assessment on 05/01: No known COVID-19 positive contacts or current COVID-19 related symptoms. No recent Covid positive test result. - Outpatient joint assessment: Pt currently scheduled for inpatient pathway. If surgeon requests review for outpatient joint pathway, patient is not recommended candidate for outpatient joint program from anesthesia standpoint. - Hx glidescope intubation: Laparoscopic Appendectomy (05/14/22): Glidescope #4, Grade 1, ETT 7.5 at [facility]. *Difficult mask ventilation* - Cardiology visit (03/12/23): "Moderate coronary atherosclerosis by cardiac catheterization October 2018 with 50-60% mid left anterior descending stenosis, negative FFR.. Paroxysmal atrial tachycardia limited recurrences.. Labile hypertension : Blood pressure is trending higher.. Chronic stable moderate coronary atherosclerosis presents negative stress testing March 2022 and no acute cardiac symptoms.. Hyperlipidemia on rosuvastatin : Continue rosuvastatin patient to forward any further testing low threshold for increasing rosuvastatin versus in adding ezetimibe further lipid reduction.. PLAN: Continue verapamil and losartan at current dosing.. Add terazosin 2 mg q.h.s. for additional hypertension control.. Patient report any cardiac symptoms.. Currently being treated for pinched nerve neck and shoulder on prednisone and muscle relaxant. Symptoms described as neuropathic but should seek further investigation in imaging if symptoms persist.. DISPOSITION: Follow-up 6 months time.. Planned repeat stress testing at in 1 year" Note written to cardiology- Awaiting response (Dr. Grier; [facility]). - Abnormal preop testing: Preop CBCD performed 05/01/23 notes "Absolute lymphocytosis in patient >50 years old. If persistent, consider evaluation for CLL (flow cytometry).. The findings could represent a low grade lymphoproliferative disorder, such as CLL or monoclonal B lymphocytosis. Review of the EHR does not reveal a history of a lymphoproliferative disorder. Flow cytometry will be performed. > Note written to PCP regarding abnormal CBCD- Awaiting response (Dr. Ever Agrawal Theodore). Chart Review Chart Review: Patient seen in Pre Admission Testing History Surgery Operation Date: 05/30/23 07:00 Proposed Procedures p Right Total Hip Arthroplasty - Frank Chandler MD Height/Weight Height: 6 ft Weight: 117.2 kg Allergies Allergy/AdvReac Type Severity Reaction Status Date / Time Penicillins Allergy Unknown Rash, ? Verified 05/01/23 13:15 fever Medications Home Medications Medication Instructions Recorded Confirmed Last Taken coenzyme Q10 100 mg capsule (Co 100 mg PO QPM 09/08/19 04/22/23 05/14/22 Q-10) folic acid 400 mcg tablet 400 mcg PO QPM 09/08/19 04/22/23 05/14/22 aspirin 81 mg tablet,delayed 81 mg PO QPM 05/14/22 04/22/23 05/14/22 release verapamil 120 mg tablet,extended 120 mg PO QPM 05/14/22 04/22/23 05/14/22 release Wheeled Walker #1 ea 02/03/23 02/03/23 Unknown cholecalciferol (vitamin D3) 50 50 mcg PO QAM PRN takes over 02/05/23 04/22/23 Unknown mcg (2,000 unit) capsule (Vitamin winter only D3) levothyroxine 150 mcg tablet 150 mcg PO QAM 02/05/23 04/22/23 Unknown (Synthroid) losartan 50 mg tablet 50 mg PO QPM 02/05/23 04/22/23 Unknown prazosin 1 mg capsule 1 mg PO HS PRN Sleep 02/05/23 04/22/23 Unknown rosuvastatin 10 mg tablet 10 mg PO QAM 02/05/23 04/22/23 Unknown zinc 50 mg tablet 50 mg PO QPM 02/05/23 04/22/23 Unknown 3-in-1 Commode #1 ea 02/07/23 Unknown Past Medical History Medical History (Updated 05/01/23 @ 13:27 by Margaret Galvan) Borderline diabetes Diet managed, under surveillance BPH (benign prostatic hyperplasia) CAD (coronary artery disease) Cardiac cath 10/2016: Moderate nonobstructive single-vessel coronary artery disease (mid LAD FFR 0.83). Decision for medical management. History of 2019- mild cold symptoms; resolved Hyperlipidemia Hypertension Hypothyroidism Insomnia Obesity Palpitations Occasional Dr. Grier/[facility] [employer] Exercise / Class Metabolic Activity II 4-5 Yardwork/Stairs/Walk up hill (one FS (no CP, no SOB)) Past Family History Family History Father Throat cancer Other No family history of adverse response to anesthesia Past Surgical History Surgical History History of cardiac cath 10/2018 ([place]) after abnormal stress test- no stents History of carpal tunnel release Right History of colonoscopy History of esophagogastroduodenoscopy (EGD) History of laparoscopic appendectomy Laparoscopic Appendectomy (05/14/22): Glidescope #4, Grade 1, ETT 7.5 at [facility]. *Difficult mask ventilation* History of repair of rotator cuff Right History of splenectomy History of tonsillectomy Past Anesthesia History No Hx of Anesthesia Complications and No Family Hx of Anesthesia Complications History of PONV No Hx of PONV and No Hx of Motion Sickness Social History Smoking Status: Never smoker Do You Dip or Chew Tobacco: No Hx Alcohol Use: Yes Alcohol type: beer alcohol intake frequency: a few times a week Hx Substance Use: No substance use type: does not use Review of Systems Occasional palpitations. Patient denies chest pain, shortness of breath, dyspnea on exertion, fever, chills, cough, wheezing. Physical Exam Vital Signs VITALS BP 130/79 P 62 TEMP 98.8 SP02 95%RA RESP 18 PHYSICAL Full cervical extension range of motion. Full TMJ range of motion. TMD 3.5 finger breaths Mallampati Score 1 Dentition: intact, +caps/crowns Lungs: clear throughout to auscultation Cardiac: regular rate and rhythm, no murmurs noted Spine: normal Carotid arteries: negative bruit Extremities: no LE edema Lab Results Anesthesia Preop Results Results Anesthesia Widget: WBC 8.47 K/ul (4.8-10.8) 05/01/23 Hgb 14.8 g/dl (14.0-18.0) 05/01/23 Hct 43.3 % (42.0-52.0) 05/01/23 Plt 269 K/uL (130-400) 05/01/23 Na 135 mmol/L (136-145) L 05/01/23 K 4.4 mmol/L (3.5-5.1) 05/01/23 Cl 103 mmol/L (98-107) 05/01/23 CO2 26 mmol/L (21-32) 05/01/23 BUN 13 mg/dl (6-23) 05/01/23 Creat 0.66 mg/dl (0.6-1.4) 05/01/23 Glucose Level 115 mg/dl (70-99(Fasting)) H 05/01/23 PT 10.5 Seconds (9.0-12.0) 05/01/23 PTT 29.6 Seconds (21.0-31.0) 05/01/23 INR 1.0 (0.9-1.1) 05/01/23 Blood Type A Positive 05/01/23 Antibody Screen NEGATIVE 05/01/23 Testing Electrocardiogram Date: 03/12/23 SR with marked sinus arrhythmia with occasional PVCs at 61bpm. NS STA. Chest X-Ray Date: 05/01/23 FINDINGS: Cardiomediastinal and hilar silhouettes are within normal limits. Hyperinflation with diaphragmatic flattening. No pneumothorax, pleural effusion, airspace consolidation or pulmonary edema. Bones appear grossly intact. IMPRESSION: No acute process. Stress Test Date: 04/06/22 Myocardial perfusion imaging is normal. Overall LV systolic function is normal without regional wall motion abnormalities. LVEF 65%. Cardiac Catheterization Date: 11/05/18 Moderate nonobstructive single-vessel coronary artery disease (mid LAD FFR 0.83). Recommendations: Continued medical management of coronary artery disease per Dr. Grier.
--- NOTE | 2023-05-29 07:38 | History & Physical Report ---
Date of Service May 29, 2023 Assessment & Plan (1) Avascular necrosis of bones of both hips: 72-year-old gentleman with a significant alcohol history with bilateral hip pain and avascular necrosis. He has failed conservative measures. He would like to proceed with hip replacement. The right side is more symptomatic and more advanced than the left. Plan: When taken to the operating room do a right total hip replacement. He has met this procedure planed the patient in depth and he understands. He has been seen by his primary care doctor as well as a director of housing and cleared for surgery. Proceed with total hip arthroplasty. History of Present Illness Chief Complaint: . Persistent right hip pain Primary Care Provider: Ever Agrawal DO . Patient is a 72-year-old gentleman who well presents for surgical treatment of his right hip. He is about a year and 1/2 to 2-year history of increasing right hip pain discomfort. Has been managed at the [place]. The symptoms continued to progress. X-rays show AVN of his hips. The right side is been more symptomatic than the left. He does have a significant alcohol history and drinks multiple drinks per day. Describes hip and buttock and groin pain. He like to have his hip fixed. Allergies Allergy/AdvReac Type Severity Reaction Status Date / Time Penicillins Allergy Unknown Rash, ? Verified 05/01/23 13:15 fever Home Medications Medication Instructions Recorded Confirmed Type coenzyme Q10 100 mg capsule (Co 100 mg PO QPM 09/08/19 04/22/23 History Q-10) folic acid 400 mcg tablet 400 mcg PO QPM 09/08/19 04/22/23 History aspirin 81 mg tablet,delayed 81 mg PO QPM 05/14/22 04/22/23 History release verapamil 120 mg tablet,extended 120 mg PO QPM 05/14/22 04/22/23 History release Wheeled Walker #1 ea 02/03/23 02/03/23 Rx cholecalciferol (vitamin D3) 50 50 mcg PO QAM PRN takes over 02/05/23 04/22/23 History mcg (2,000 unit) capsule (Vitamin winter only D3) levothyroxine 150 mcg tablet 150 mcg PO QAM 02/05/23 04/22/23 History (Synthroid) losartan 50 mg tablet 50 mg PO QPM 02/05/23 04/22/23 History prazosin 1 mg capsule 1 mg PO HS PRN Sleep 02/05/23 04/22/23 History rosuvastatin 10 mg tablet 10 mg PO QAM 02/05/23 04/22/23 History zinc 50 mg tablet 50 mg PO QPM 02/05/23 04/22/23 History 3-in-1 Commode #1 ea 02/07/23 Rx acetaminophen 500 mg tablet 1,000 mg PO TID pain 30 days #180 05/28/23 Rx (Tylenol Extra Strength) tabs aspirin 81 mg tablet,delayed 81 mg PO BID 45 days #90 tabs 05/28/23 Rx release (Shelia Low Dose Aspirin) hydromorphone 2 mg tablet 2 - 4 mg PO Q6 PRN pain #30 Tabs 05/28/23 Rx ketorolac 10 mg tablet 10 mg PO Q6 pain 5 days #20 tabs 05/28/23 Rx ondansetron 4 mg disintegrating 4 mg PO Q8 PRN nausea #20 tabs 05/28/23 Rx tablet sennosides 8.6 mg tablet (Senokot) 8.6 mg PO BID prevent constipation 05/28/23 Rx 14 days #28 tabs tamsulosin 0.4 mg capsule (Flomax) 0.4 mg PO DAILY #7 caps 05/28/23 Rx Past Med/Surg History Medical History Borderline diabetes Diet managed, under surveillance BPH (benign prostatic hyperplasia) CAD (coronary artery disease) Cardiac cath 10/2016: Moderate nonobstructive single-vessel coronary artery disease (mid LAD FFR 0.83). Decision for medical management. History of COVID-2019- mild cold symptoms; resolved Hyperlipidemia Hypertension Hypothyroidism Insomnia Obesity Palpitations Occasional Dr. Grier/[facility] Surgical History History of cardiac cath 10/2018 ([place]) after abnormal stress test- no stents History of carpal tunnel release Right History of colonoscopy History of esophagogastroduodenoscopy (EGD) History of laparoscopic appendectomy Laparoscopic Appendectomy (05/14/22): Glidescope #4, Grade 1, ETT 7.5 at [facility]. *Difficult mask ventilation* History of repair of rotator cuff Right History of splenectomy History of tonsillectomy Family History Father Throat cancer Other No family history of adverse response to anesthesia Social History Smoking Status: Never smoker Second Hand Exposure: Yes (hx); Do You Dip or Chew Tobacco: No; Hx Alcohol Use: Yes Alcohol type: beer Hx Substance Use: No Preferred Language: French Communication Ability: Effective Sizing End Bander Required: No Beliefs That Will Affect Care: None Current Living Situation: Spouse Current Living Situation Comment: lives in a 2 story home with Feels Safe at Home: Yes Assistive Devices: Glasses Review of Systems All systems reviewed & are unremarkable except as noted in HPI & below. Physical Exam . Physical examination of the hips reveal a patient to ambulate independently. He does seem to have a bit of a limp. Leg lengths appear fairly equal. He is got pretty good hip motion with pain with internal rotation both sides. Negative straight leg raise. He is neurologically intact. Constitutional WD/WN, vitals as above Neck trachea midline, no thyromegaly Respiratory normal respiratory effort, lungs clear to auscultation Cardiovascular RRR, no murmur, no edema Gastrointestinal (Abdomen) normal bowel sounds, soft, nontender, no hepatosplenomegaly Results & Data Results & Data Laboratory Results . Diagnostic Findings . X-rays of the hip reveal evidence of a vast necrosis of both femoral heads. Right side looks a bit more extensive than the left. No obvious collapse. MRI was also reviewed. Shows evidence of bilateral hip AVN. Pretty extensive disease on both sides. Diffuse pulmonary edema. Question of collapse. Small hip joint effusion. PG Care Time/CCT Total # of Minutes Spent Total Time Spent with Patient: Total time spent is greater than 50% in coordination of care (as documented) at patient's floor/unit and/or counseling patient: Coding Level of Care Code None Diagnoses Avascular necrosis of bones of both hips M87.051; M87.052
[~2023-05-30 06:43] MED LIST: ACETAMINOPHEN 500 MG TAB PO SCH; ALLERGY Noted to ORDERED Medication SCH; BUPIVACAINE 0.5 % 5 MG/1 ML PF 10ML VIAL ONE; BUPIVACAINE LIPOSOME/PF 266 MG, BUPIVACAINE/EPINEPHRINE 50 ML, SODIUM CHLORIDE 0.9% PF ... INFIL SCH; CeleBREX 200 MG CAP PO SCH; FAMOTIDINE 20 MG TAB PO SCH; LR 500ML BOLUS, THEN 15ML/HR IV SCH; LR 60ML/HR IV SCH; METOCLOPRAMIDE HCL 10 MG TABLET PO SCH; TRANEXAMIC ACID 1,000 MG **IV Pre-op IV SCH; ceFAZolin 2000MG 2,000 MG/15 ML SYR IV SCH; dexAMETHasone**PF** 10 MG/ML VIAL IV SCH
--- NOTE | 2023-05-30 06:52 | History & Physical Bridge Note ---
Date of Service May 30, 2023 History & Physical Bridge Note I have examined the patient, reviewed the History & Physical and in the interval since the performance of the History & Physical I have noted the following changes of clinical significance: no changes noted
[2023-05-30] MEDS ORDERED: Nursing to Pharmacy Communication SCH (07:15)
[2023-05-30] MEDS ORDERED: ONDANSETRON INJ 2 MG/ML 2 ML VIAL ONE (07:18)
[2023-05-30] MEDS ORDERED: DEXAMETHASONE SOD INJ 4 MG/ML VIAL ONE (07:18)
[2023-05-30] MEDS ORDERED: LIDOCAINE 2% 2 ML VIAL/AMP(20MG/ML) INFIL ONE (07:18)
[2023-05-30] MEDS ORDERED: PROPOFOL IV EMULSION 10 MG/ML 20 ML VIAL IV ONE ×3 (07:18→08:35)
[2023-05-30] MEDS ORDERED: fentaNYL citrate PF 100 MCG/2 ML VIAL ONE (07:19)
[2023-05-30] MEDS ORDERED: MIDAZOLAM HCL 1 MG/ML 2ML VIAL ONE ×2 (07:19→08:52)
[2023-05-30] MEDS ORDERED: ePHEDrine sulfate 50 MG/ML AMP IV PRN (08:00)
[2023-05-30] MEDS ORDERED: ATROPINE SULFATE 0.1 MG/ML 10ML SYR IV PRN (08:00)
[2023-05-30] MEDS ORDERED: ONDANSETRON INJ 2 MG/ML 2 ML VIAL IV PRN ×2 (08:00→13:25)
[2023-05-30] MEDS ORDERED: BUPIVACAINE/EPINEPHRINE 0.5% MPF 1:200,000 30 ML VIAL ONE (08:45)
[2023-05-30] MEDS ORDERED: KETAMINE 50 MG/5 ML SYRINGE ONE (09:24)
[2023-05-30] MEDS ORDERED: GLYCOPYRROLATE 0.2 MG/ML VIAL ONE (09:24)
[2023-05-30] MEDS ORDERED: PHENYLEPHRINE 100MCG/ML 5ML SYR ONE (09:39)
--- NOTE | 2023-05-30 11:12 | Operative Report ---
PG Post Operative Report Pre & Post Diagnosis Operation Date: 05/30/23 08:50 Pre-Op Diagnosis: Right Hip Avascular Necrosis Post-Op Diagnosis: Right Hip Avascular Necrosis I identified the patient and participated in the time-out.: Yes Procedure Operation Date: 05/30/23 08:50 Actual Procedures p Right Total Hip Arthroplasty(Right) - Frank Chandler MD Surgeon Frank Chandler MD Harness Inspector Jermaine Velasco PA-C Estimated Blood Loss 200 Findings Consistent with Post-Op Diagnosis Operative findings revealed a fairly normal articular surface in appearance. With palpation there did seem to be some softening of the superior aspect of the femoral head suggestive of some early collapse. Fairly minimal hip joint effusion. No real osteophyte formation Specimens Right femoral head sent for pathology Anesthesia Type Spinal MAC Complications none Disposition Accompanied Patient To Recovery: No Indications Patient is a 72-year-old gentleman has had a several year history of increasing right hip pain and discomfort right side greater than left. Does have a history of significant alcohol use. He had x-rays which were fairly normal but did suggest AVN. He had MRI showed extensive a vast necrosis of both femoral heads. Right side was bit worse than left. He elected proceed with total hip arthroplasty. Description of Procedure Operative implants consist of: 1. Biomet G7 size 56 mm acetabular shell. 2. Berkeley hole eliminator. 3. 6.5 cancellous acetabular screws 2 out of 35 mm length. 4. Highly cross-linked polyethylene liner with a 56 mm outer diameter and 40 mm diameter. 5. DePuy Karaya size 16 KLA femoral stem. 6. +5/40 mm ceramic articular ball. The patient was taken the operating, identified, and placed on the operating table supine position but all contractors were appropriately padded. IV antibiotics tried by anesthesia team. A spinal anesthetic had been implemented holding area. Patient was then placed in the left lateral decubitus position. A roll was placed. A Stulberg hip positioner was used for positioning. The right hip and leg were then prepped and draped in usual sterile fashion. A posterolateral approach to the right hip was then formed to a curvilinear incision centered over the greater trochanter. Sharp dissection was carried through subcutaneous tissue down to level the IT band gluteal gluteal fascia. The IT band gluteal fascia incised longitudinally in line with skin incision. The underlying greater bursa was excised. The piriformis and external rotators along with the hip joint capsule were then released from the posterior aspect hip as a single layer. Great care was taken throughout the procedure protect the sciatic nerve at all times. Hip was internally rotated and dislocated. A femoral neck osteotomy cut was made with Final Cut about 22 mm above the lesser trochanter. Femoral head was removed and sent for pathology. The femur was retracted anteriorly. Attention drawn the acetabulum. The acetabular labrum was excised. The pulmonary fat was excised. The I did curette out the acetabulum of the cartilage. I then reamed beginning with size 47 progressing up to 55. I reamed a little bit with a 55 reamer. A 56 mm Biomet G7 acetabular shell was then placed in about 40 degrees lateral opening and 20 degrees of anteversion. It was fixed with two 6.5 cancellous acetabular screws. A trial liner was placed. Attention drawn the femur. The proximal femur was entered with a Gyst cutter followed by canal finder. Then broached begin the size 8 and progressed up to a 16. Get excellent fit of the 16. I then trialed the hip and the hip was fully stable in full extension and external rotation flexion to 90 degrees internal Tatian over 50 degrees. Soft tissue tension seemed appropriate. Leg lengths appeared equal. I elect to place these implants. Nupathe all trial implants were removed. Berkeley hole limiter was placed. Highly cross-linked polyethylene liner was placed. A size 16 KLA femoral stem was impacted in position. A +5/40 mm R ceramic articular ball was placed. We placed a 40 ball in order to optimize his stability considering his alcohol use. The hip was located once again found to be stable. Leg lengths. Equal. I attention was then drawn toward closing. The wound was irrigated coconuts pulsatile lavage solution. I did inject locally with 60 cc of half percent Marcaine with epinephrine. Posterior capsule and external rotators were then repaired through drill holes in the posterior trochanter with #2 Tycron suture. The IT band gluteal fascia then closed in 1 PDS suture running fashion for subcutaneous tissue then closed in 2 layers with a deep layer #1 Vicryl suture in the subcutaneous tissues with 2-0 Dexon in a buried interrupted fashion. The skin was closed with skin migel. Leg was then cleaned cleaned and dried and a sterile dressing was Xeroform, 4 fours, ABD pad, foam tape was applied. Patient then transferred to the recovery room in stable condition. Patient tolerated procedure well no complications. Jermaine Velasco, my physician railway yard assistant, was present for the entire procedure. His assistance was essential and required for appropriate patient positioning, prepping and draping, surgical exposure, performing the technical details of the operation, placement the implants, closure of the wound, and placement of the sterile bandage. I attest to the content of the Intraoperative Record and any orders documented therein. Any exceptions are noted below.
[2023-05-30] MEDS: fentaNYL citrate PF 100 MCG/2 ML VIAL IV PRN ×4 (11:23→11:39)
--- NOTE | 2023-05-30 11:30 | XRay Report ---
XR hip 1V RT w pelvis CLINICAL HISTORY: Postoperative evaluation. COMPARISON: Hip radiographs December 30, 2022. FINDINGS: Alignment of the right hip arthroplasty is in anatomic. There is no periprosthetic fractur e. There are no unexpected radiopaque foreign bodies. Skin migle are present. There are acetabular screws. Avascular necrosis of the left femoral head is again noted. IMPRESSION: Expected findings following total right hip arthroplasty. ACT 112: Negative or not required by law. Electronically signed by: Panda Kohler M.D. 05/30/2023 11:29 AM
--- NOTE | 2023-05-30 11:42 | Anesthesiology Progress Note ---
Date of Service May 30, 2023 Anesthesia Post Procedure Vital Signs Vital Signs: Temp Pulse Resp BP Pulse Ox O2 Del Method O2 Flow Rate 05/30/23 11:35 58 L 16 112/68 97 Nasal Cannula 3 05/30/23 11:25 55 L 16 114/72 94 Room Air 05/30/23 11:15 66 16 112/64 95 Room Air 05/30/23 11:05 58 L 13 109/64 97 Oxymask 6 05/30/23 10:59 97.7 F 66 16 122/70 95 Oxymask 6 Pain Intensity Right Hip: Pain Intensity: 6 Head: Pain Intensity: 0 Transfer of Care Handoff Completed per policy Notes Mental Status: alert / awake / arousable and participated in evaluation Patient Amnestic to Procedure: Yes Nausea / Vomiting: adequately controlled Pain: adequately controlled Airway Patency, RR, SpO2: stable & adequate BP & HR: stable & adequate Hydration State: stable & adequate Neuraxial Anesthesia: was administered and sensory block is resolving Anesthetic Complications: no major complications apparent and Pt Satisfied with anesthetic care
[2023-05-30] MEDS ORDERED: HYDROmorphone INJ 2 MG/ML SYR/VIAL IV PRN (11:43)
[2023-05-30] MEDS ORDERED: HYDROmorphone INJ 0.5 MG/0.5 ML SYR ONE ×2 (11:44→11:48)
[2023-05-30] MEDS ORDERED: ONDANSETRON 4 MG OD TAB PO PRN (13:25)
[2023-05-30] MEDS ORDERED: ALUMINUM/MAGNESIUM SUSP 30 ML UDC PO PRN (13:25)
[2023-05-30] MEDS ORDERED: PHARMACY GLYCEMIC MGMT CONSULT PRN (13:25)
[2023-05-30] MEDS ORDERED: SODIUM CHLORIDE 0.9% 1,000 ML IV SCH (13:25)
[2023-05-30] MEDS ORDERED: METOCLOPRAMIDE HCL INJ 5 MG/ML 2 ML VIAL IV PRN (13:25)
[2023-05-30] MEDS ORDERED: PRAZOSIN HCL 1 MG CAP PO PRN (13:25)
[2023-05-30] MEDS ORDERED: NALOXONE HCL 0.4 MG/1 ML VIAL/CARP IV PRN (13:25)
[2023-05-30] MEDS ORDERED: bisacodyL 10 MG SUPP PR PRN (13:25)
[2023-05-30] MEDS ORDERED: MAGNESIUM HYDROXIDE SUSP 30 ML UDC PO PRN (13:25)
[2023-05-30] MEDS ORDERED: NON-FORMULARY MEDICATION (Cholecalciferol (Vitamin D3) [Vitamin D3] 50 mcg (2,000 unit) Ca PO PRN (13:25)
[2023-05-30] MEDS ORDERED: HYDROmorphone INJ 0.5 MG/0.5 ML SYR IV PRN (13:25)
--- NOTE | 2023-05-30 14:23 | Pharmacy Report ---
Pharmacy Glycemic Short Note 2 - Date of Service May 30, 2023 - Glycemic Short BSG Results (Last 24 hours): 05/30/23 05/30/23 07:35 13:54 POC Glucose 147 H 213 H OUTPATIENT ANTIDIABETIC REGIMEN: * n/a - diet controlled per notes * A1c ordered for tomorrow AM 05/31 ASSESSMENT: * 72 year old male now s/p R hip arthroplasty, POD 0 - pharmacy is consulted for glycemic management. Notes report patient is borderline DM/diet controlled. Patient received IV dexamethasone preop therefore anticipate steroid induced hyperglycemia. Postop BSG value in 200s * Plan to start novolog stress of 2 dosing as unclear A1c. Will add on NPH 20 units x 1 now with overnight checks. PLAN FOR INPATIENT GLYCEMIC CONTROL: * Hold outpatient oral diabetes medications * Basal insulin * NPH 20 units x 1 now * Bolus insulin * NovoLog per scale ACHS or Q6hrs while NPO * Goal Range: Low 110 mg/dL - High 140 mg/dL * Correction Factor: 20 mg/dL/unit * Nutritional / Prandial insulin per carb ratio of 1 unit per 7 grams CHO consumed
[2023-05-30] MEDS ORDERED: NovoLIN-N (NPH) PER UNIT CHARGE SQ ONE (14:30)
[2023-05-30] MEDS: ACETAMINOPHEN 500 MG TAB PO SCH ×2 (15:06→23:19)
[2023-05-30] MEDS: KETOROLAC TROMETHAMINE 15 MG/ML VIAL IV SCH ×2 (15:07→20:24)
[2023-05-30] MEDS: INSULIN ASPART PER UNIT CHARGE SC SCH ×4 (15:11→23:45)
[2023-05-30] MEDS: ceFAZolin 2000MG 2,000 MG/15 ML SYR IV SCH (16:32)
[2023-05-30] MEDS: ASCORBIC ACID 500 MG TAB PO SCH (16:34)
[2023-05-30] MEDS ORDERED: TRANEXAMIC ACID / 0.7% NACL 1,000 MG/100 ML BAG IV SCH (17:15)
[2023-05-30] MEDS: ASPIRIN 81 MG ECTAB PO SCH (20:19)
[2023-05-30] MEDS: DOCUSATE SODIUM 100 MG CAP PO SCH (20:21)
[2023-05-30] MEDS ORDERED: FOLIC ACID 400 MCG TAB PO SCH (21:00)
[2023-05-30] MEDS ORDERED: ZINC SULFATE 220 MG CAPSULE PO SCH (21:00)
[2023-05-30] MEDS ORDERED: SENNA 8.6 MG TAB PO SCH ×2 (21:00)
[2023-05-30] MEDS ORDERED: LOSARTAN POTASSIUM 50 MG TAB PO SCH (21:00)
[2023-05-30] MEDS ORDERED: NON-FORMULARY MEDICATION (Coenzyme Q10 [Co Q-10] 100 mg Capsule) PO SCH (21:00)
[2023-05-30] MEDS ORDERED: VERAPAMIL HCL 120 MG TABCR PO SCH (21:00)
[2023-05-30] MEDS: HYDROmorphone HCL 2 MG TAB PO PRN (23:22)
[2023-05-31] MEDS: ceFAZolin 2000MG 2,000 MG/15 ML SYR IV SCH (04:05)
[2023-05-31] MEDS: KETOROLAC TROMETHAMINE 15 MG/ML VIAL IV SCH ×2 (04:06→07:40)
[2023-05-31] MEDS: INSULIN ASPART PER UNIT CHARGE SC SCH ×2 (04:13→08:21)
[2023-05-31] MEDS: HYDROmorphone HCL 2 MG TAB PO PRN (05:38)
[2023-05-31] MEDS ORDERED: LEVOTHYROXINE SODIUM 150 MCG TABLET PO SCH (06:30)
[2023-05-31 06:33] LABS: Basophils # (auto) 0.02 K/uL (0.00-0.20); Basophils % (auto) 0.1 %; Hematocrit (blood only) 39.3 % (42.0-52.0); Hemoglobin 13.6 g/dl (14.0-18.0); Immature Granulocytes # (auto) 0.13 K/uL (0.01-0.20); Immature Granulocytes % (auto) 0.7 %; Mean Corpuscular Hemoglobin 29.2 pg (25.0-34.0); Mean Corpuscular Hgb Conc 34.6 g/dL (32.0-36.0); Mean Corpuscular Volume 84.3 fL (80.0-100.0); Mean Platelet Volume 10.6 fL (9.4-12.4); Monocytes # (auto) 1.48 K/uL (0.11-0.59); Monocytes % (auto) 7.4 %; Neutrophils # (auto) 15.15 K/uL (1.40-6.50); Neutrophils % (auto) 75.8 %; Platelet Count 244 K/uL (130-400); RDW Coefficient of Variation 13.2 % (11.5-14.5); RDW Standard Deviation 40.9 fL (36.4-46.3); Red Blood Count 4.66 M/uL (4.70-6.10); White Blood Count 19.98 K/ul (4.8-10.8)
[2023-05-31] MEDS: ACETAMINOPHEN 500 MG TAB PO SCH (06:37)
[2023-05-31 07:00] LABS: Calcium 9.1 mg/dl (8.6-10.3); Creatinine Clr Calc Pharmacy 117.6 ml/min; Est GFR (African American) 106.6 ml/min; Est GFR (Non-African American) 91.9 ml/min; Potassium 4.5 mmol/L (3.5-5.1)
[2023-05-31] MEDS: DOCUSATE SODIUM 100 MG CAP PO SCH (07:40)
[2023-05-31] MEDS: ASPIRIN 81 MG ECTAB PO SCH (07:40)
[2023-05-31] MEDS: ASCORBIC ACID 500 MG TAB PO SCH (07:41)
[2023-05-31] MEDS ORDERED: dexAMETHasone 10 MG in SYRINGE 0 ML IV SCH (08:00)
[2023-05-31] MEDS ORDERED: NovoLIN-N (NPH) PER UNIT CHARGE SQ ONE (08:00)
--- NOTE | 2023-05-31 08:33 | Orthopedic Progress Note ---
Date of Service May 31, 2023 Assessment & Plan (1) Status post right hip replacement: 9-year-old gentleman postop day 1 from right knee replacement. Appears to be doing quite well. Pain is controlled. He is neurologically intact. Hips located. Plan: 1. DVT prophylaxis including thigh-high teds SCDs and aspirin twice a day. 2. PT OT. Weight-bear as tolerated. Right total hip protocol. 3. Pain control doing okay with current pain regimen. 4. Disposition. He is hoping to be discharged to home. We will see how therapy goes today. Subjective . 72-year-old gentleman postop day 1 from right hip replacement. She doing pretty well this morning. His pain is controlled. No chest pain or shortness of breath. Not feeling dizzy or lightheaded Review of Systems All systems reviewed & are unremarkable except as noted in HPI & below. Physical Exam . Physical examination was a pleasant middle-age male. He is sitting up in bed and looks pretty comfortable. Is eating breakfast this morning. Pain is controlled. Examination of the right hip and leg reveals dressing clean dry and intact. He can dorsiflex and plantarflex his foot appropriately. He is neurologically intact. Respiratory normal respiratory effort, lungs clear to auscultation Cardiovascular RRR, no murmur, no edema Gastrointestinal (Abdomen) normal bowel sounds, soft, nontender, no hepatosplenomegaly Results & Data Results & Data Laboratory Results . Hemoglobin 13.6 hematocrit 39.3. Electrolytes are stable. Diagnostic Findings . PG Care Time/CCT Total # of Minutes Spent Total Time Spent with Patient: Total time spent is greater than 50% in coordination of care (as documented) at patient's floor/unit and/or counseling patient: Coding Level of Care Code 24840 Post Operative Follow-Up Diagnoses Status post right hip replacement Z96.641
[2023-05-31] MEDS ORDERED: TAMSULOSIN HCL 0.4 MG CAP PO SCH (09:00)
[2023-05-31] MEDS ORDERED: MULTIVITAMIN TAB PO SCH (09:00)
[2023-05-31] MEDS ORDERED: ROSUVASTATIN CALCIUM 10 MG TAB PO SCH (09:00)
[2023-05-31 09:06] LABS: Estimated Average Glucose 157 mg/dl; Hemoglobin A1C 7.1 % (4.5-5.6)
--- NOTE | 2023-06-04 13:00 | Discharge Summary ---
Date of Service June 04, 2023 Discharge Data Procedures Performed Operation Date: 05/30/23 08:50 Actual Procedures p Right Total Hip Arthroplasty(Right) - Frank Chandler MD Hospital Course (1) Status post right hip replacement: This is a 72 year old patient admitted on 05/30/23 and underwent total hip arthroplasty. He tolerated the procedure well and there were no complications. Transferred to the PACU post op and later to the orthopedic floor for further care. He was given ancef for antibiotic prophylaxis. He was also given ARIAS stockings, SCDs, and aspirin for DVT prophylaxis. Hemoglobin, hematocrit, and vital signs were monitored during his hospital stay and remained stable. Did not require any blood transfusions. There were no complications during his hospital stay. By post op day #1 the patient was tolerating a diabetic diet, pain was reasonably controlled with oral pain medicine, and he was participating in physical therapy. On post op day #1 the patient was discharged home and set up with home health care. He was given printed discharge instructions including prescriptions for extra strength tylenol, aspirin, ketorolac, hydromorphone, zofran, senokot, and flomax. Continue hip precautions. Continue physical therapy, weight bearing as tolerated. Continue ARIAS stockings. Follow up approximately 2 weeks post op or sooner if there are problems or concerns. Coding Level of Care Code None Diagnoses Status post right hip replacement Z96.641
== END 2023-05-31 10:20 | disposition home health service (06) ==
LOC: ASU 06:43 → 3E 06:43